=== PATIENT | female | born 1975 | race Caucasian/White ===

== ENCOUNTER 2018-03-09 12:35 | Emergency (ER) | payer BC, MEDICARE ==
[2018-03-09 12:38] VITALS: BP 122/56
[2018-03-09] MEDS ORDERED: NAPROSYN500 MG PO (12:46)
[2018-03-09] MEDS ORDERED: CHLORZOXAZONE500 M2 PO (12:46)
[2018-03-09] MEDS ORDERED: ZOFRAN4 MG PO (14:24)
== END 2018-03-09 14:28 | disposition home or self-care (01) ==
LOC: ED 12:35
DX: S13.9XXA Sprain of joints and ligaments of unspecified parts of neck, initial encounter (principal); S09.90XA Unspecified injury of head, initial encounter; T14.8XXA Other injury of unspecified body region, initial encounter; M54.5 Low back pain; Z88.1 Allergy status to other antibiotic agents; Z88.8 Allergy status to other drugs, medicaments and biological substances; W00.0XXA Fall on same level due to ice and snow, initial encounter; Y93.89 Activity, other specified; Y92.89 Other specified places as the place of occurrence of the external cause; Y99.8 Other external cause status

== ENCOUNTER 2019-04-30 19:03 | Emergency (ER) | payer OTHER ==
[~2019-04-30] VITALS: Ht 170.1 cm; Wt 127.0 kg
[~2019-04-30 19:03] MED LIST: CHLORZOXAZONE500 M2 PO; NAPROSYN500 MG PO; ZOFRAN4 MG PO
[2019-04-30] MEDS ORDERED: LEVOTHYROXINE200 MC2 PO (19:22)
[2019-04-30] MEDS ORDERED: PANTOPRAZOLE SO40 MG PO (19:22)
[2019-04-30] MEDS ORDERED: SULFAZINE EC500 MG PO (19:22)
[2019-04-30] MEDS ORDERED: VIT D (19:23)
[2019-04-30] MEDS ORDERED: ALPRAZOLAM0.25 M2 PO (19:23)
[2019-04-30 19:31] LABS: BASO % 0.5 % (0.0-1.0); EOS # 0.2 10*3/uL (0.0-0.4); EOS % 2.5 % (1.0-4.0); HEMATOCRIT 41.5 % (37.0-47.0); HEMOGLOBIN 13.4 g/dl (12.0-16.0); LYMPH # 2.8 10*3/uL (1.3-4.4); LYMPH % 31.9 % (27.0-41.0); MEAN CORPUSCULAR HGB 29.4 pg (27.0-31.0); MEAN CORPUSCULAR HGB CONC 32.3 g/dl (33.0-37.0); MEAN PLATELET VOLUME 10.7 fl (9.6-12.3); MONO # 0.6 10*3/uL (0.1-1.0); MONO % 7.3 % (3.0-9.0); NEUT % 57.6 % (47.0-73.0); PLATELET COUNT AUTOMATED 322 10*3/uL (130-400); RED BLOOD COUNT 4.56 10*6/uL (4.10-5.10); RED CELL DISTRI WIDTH 12.7 % (0-14.5); WHITE BLOOD COUNT 8.6 10*3/uL (4.8-10.8)
[2019-04-30 19:48] LABS: ALBUMIN 3.5 gm/dl (3.1-4.5); ALKALINE PHOSPHATASE 114 U/L (45-117); BUN 16 mg/dl (7-24); CHLORIDE 105 mmol/L (98-107); CREATININE 0.79 mg/dL (0.55-1.02); SGOT/AST 18 IU/L (3-35); SGPT/ALT 29 U/L (12-78); SODIUM 136 mmol/L (136-145); TOTAL PROTEIN 7.3 gm/dL (6.4-8.2)
[2019-04-30 19:49] LABS: TROPONIN I < 0.015 ng/ml (<0.045)
[2019-04-30 20:15] LABS: INTERNATIONAL NORM RATIO 0.9 (2.0-3.5)
[2019-04-30 22:18] VITALS: BP 113/51
== END 2019-04-30 23:15 | disposition short-term general hospital (02) ==
LOC: ED 19:03
PROVIDERS: Emergency Medicine
DX: R53.1 Weakness (principal); R20.0 Anesthesia of skin; R07.9 Chest pain, unspecified; F17.200 Nicotine dependence, unspecified, uncomplicated; G43.909 Migraine, unspecified, not intractable, without status migrainosus; Z88.8 Allergy status to other drugs, medicaments and biological substances; Z79.899 Other long term (current) drug therapy

== ENCOUNTER 2020-01-31 10:12 | Emergency (ER) | payer OTHER ==
[~2020-01-31] VITALS: Ht 172.7 cm; Wt 127.0 kg
[~2020-01-31 10:12] MED LIST changes: +ALPRAZOLAM0.25 M2 PO; +LEVOTHYROXINE200 MC2 PO; +PANTOPRAZOLE SO40 MG PO; +SULFAZINE EC500 MG PO; +VIT D
[2020-01-31 10:23] VITALS: BP 133/61
[2020-01-31 11:16] LABS: BASO % 0.6 % (0.0-1.0); EOS # 0.1 10*3/uL (0.0-0.4); EOS % 1.7 % (1.0-4.0); HEMATOCRIT 40.1 % (37.0-47.0); LYMPH # 1.3 10*3/uL (1.3-4.4); LYMPH % 35.3 % (27.0-41.0); MEAN CELL VOLUME 88.9 fl (81.0-99.0); MEAN CORPUSCULAR HGB 27.9 pg (27.0-31.0); MEAN CORPUSCULAR HGB CONC 31.4 g/dl (33.0-37.0); MEAN PLATELET VOLUME 10.2 fl (9.6-12.3); MONO # 0.6 10*3/uL (0.1-1.0); MONO % 17.2 % (3.0-9.0); NEUT # 1.6 10*3/uL (2.3-7.9); NEUT % 44.9 % (47.0-73.0); PLATELET COUNT AUTOMATED 298 10*3/uL (130-400); RED BLOOD COUNT 4.51 10*6/uL (4.10-5.10); RED CELL DISTRI WIDTH 13.3 % (0-14.5); WHITE BLOOD COUNT 3.5 10*3/uL (4.8-10.8)
[2020-01-31 11:30] LABS: ACT PARTIAL THROMBO TIME 25.6 SECONDS (20.0-32.1)
[2020-01-31 11:36] LABS: ALBUMIN 3.7 gm/dl (3.1-4.5); ALKALINE PHOSPHATASE 118 U/L (45-117); BUN 11 mg/dl (7-24); CHLORIDE 107 mmol/L (98-107); CPK 90 U/L (26-192); CREATININE 0.67 mg/dL (0.55-1.02); POTASSIUM 3.9 mmol/L (3.5-5.1); SGOT/AST 15 IU/L (3-35); SGPT/ALT 33 U/L (12-78); SODIUM 139 mmol/L (136-145); TOTAL PROTEIN 7.1 gm/dL (6.4-8.2)
[2020-01-31 11:46] LABS: TROPONIN I < 0.015 ng/ml (<0.045)
[2020-01-31] MEDS ORDERED: TESSALON PERLE100 MG PO (13:30)
== END 2020-01-31 13:21 | disposition home or self-care (01) ==
LOC: ED 10:12
PROVIDERS: Emergency Medicine
DX: U07.1 COVID-19 (principal); K21.9 Gastro-esophageal reflux disease without esophagitis; R79.1 Abnormal coagulation profile

== ENCOUNTER 2021-03-03 17:03 | Emergency (ER) | payer OTHER ==
[~2021-03-03] VITALS: Wt 101.2 kg
[~2021-03-03 17:03] MED LIST changes: +TESSALON PERLE100 MG PO
[2021-03-03 17:20] VITALS: BP 110/63
[2021-03-03] MEDS ORDERED: MEDROL DOSEPAK4 MG PO (19:51)
== END 2021-03-03 20:30 | disposition home or self-care (01) ==
LOC: ED 17:03
DX: S43.101A Unspecified dislocation of right acromioclavicular joint, initial encounter (principal); Z88.1 Allergy status to other antibiotic agents; Z88.8 Allergy status to other drugs, medicaments and biological substances; Z79.899 Other long term (current) drug therapy; Z98.890 Other specified postprocedural states; Z98.51 Tubal ligation status; Z90.711 Acquired absence of uterus with remaining cervical stump; W51.XXXA Accidental striking against or bumped into by another person, initial encounter; Y93.89 Activity, other specified; Y92.89 Other specified places as the place of occurrence of the external cause; Y99.8 Other external cause status

== ENCOUNTER 2021-03-06 19:52 | Emergency (ER) | payer OTHER ==
[~2021-03-06] VITALS: Ht 177.8 cm; Wt 101.2 kg
[~2021-03-06 19:52] MED LIST changes: +MEDROL DOSEPAK4 MG PO
[2021-03-07 00:52] VITALS: BP 117/64
[2021-03-07] MEDS ORDERED: TRAMADOL HCL50 MG PO (01:51)
== END 2021-03-07 02:21 | disposition home or self-care (01) ==
LOC: ED 19:52
DX: R07.89 Other chest pain (principal); Z88.1 Allergy status to other antibiotic agents; Z88.8 Allergy status to other drugs, medicaments and biological substances; Z79.899 Other long term (current) drug therapy; Z90.89 Acquired absence of other organs; Z98.890 Other specified postprocedural states; Z98.51 Tubal ligation status; Z90.710 Acquired absence of both cervix and uterus